=== PATIENT | male | born 1955 | race Caucasian/White ===

== ENCOUNTER 2017-11-15 13:28 | Emergency (ER) | payer SELFPAY ==
[2017-11-15] MEDS ORDERED: FENTANYL CITRATE INJ/PF 100 MCG/2 ML AMPUL ONE (13:39)
--- NOTE | 2017-11-15 13:39 | ER Document Report ---
ED Hand/Wrist Injury - General Chief Complaint: Finger Injury Stated Complaint: FINGER INJURY Time Seen by Provider: 11/15/17 13:39 Notes: 61-year-old male was working on a table saw. Lost control of the board. Pulled his left hand into the sole. Amputation and lacerations of the third digit on the left hand with fracture, dislocation and lacerations of the second digit. There is a fillet injury to the left thumb. Cannot feel his left thumb or the second digit on the left hand. No other injuries. Did not pass out. Denies any other symptoms. TRAVEL OUTSIDE OF THE [place] IN LAST 30 DAYS: No - HPI Injury to: Hand, Thumb, Index finger, Middle finger Onset: Just prior to arrival Past Medical History - General Information source: Patient - Social History Smoking Status: Current Every Day Smoker Cigarette use (# per day): Yes Frequency of alcohol use: Occasional Drug Abuse: None Lives with: Alone Family History: Reviewed & Not Pertinent - Past Medical History Cardiac Medical History: Reports: None Pulmonary Medical History: Reports: None EENT Medical History: Reports: None Neurological Medical History: Reports: None Endocrine Medical History: Reports: None Renal/ Medical History: Reports: None Malignancy Medical History: Reports None GI Medical History: Reports: None Review of Systems - Review of Systems Constitutional: No symptoms reported EENT: No symptoms reported Cardiovascular: No symptoms reported Respiratory: No symptoms reported Gastrointestinal: No symptoms reported Genitourinary: No symptoms reported Male Genitourinary: No symptoms reported Musculoskeletal: See HPI, Other - lacerations and fractures to the left hand Skin: No symptoms reported, See HPI, Other - lacerations 1-3 digits on left hand Hematologic/Lymphatic: No symptoms reported Neurological/Psychological: No symptoms reported Physical Exam - Vital signs Vitals: Resp Pulse Ox 23 H 94 11/15/17 14:09 11/15/17 14:09 Interpretation: Normal - General General appearance: Appears well, Anxious In distress: Moderate Notes: Uncomfortable due to pain. - HEENT Head: Normocephalic, Atraumatic Eyes: Normal Pupils: PERRL - Respiratory Respiratory status: No respiratory distress Chest status: Nontender Breath sounds: Normal Chest palpation: Normal - Cardiovascular Rhythm: Regular Heart sounds: Normal auscultation Murmur: No - Abdominal Inspection: Normal Distension: No distension Bowel sounds: Normal Tenderness: Nontender Organomegaly: No organomegaly - Back Back: Normal, Nontender - Extremities General upper extremity: Other - The left hand demonstrates open lacerations from the distal tip of the first digit to the thenar eminence. There is bone fragments present. There is loss of sensation and capillary refill to the distal thumb. There is a open laceration with deformity to the second digit. There is decreased sensation and decreased capillary refill to the second digit. There is open laceration to the third digit of the left hand. General lower extremity: Normal inspection, Nontender, Normal color, Normal ROM , Normal temperature, Normal weight bearing. No: Ricarda's sign - Neurological Neuro grossly intact: Yes Cognition: Normal Orientation: AAOx4 Reuben Coma Scale Eye Opening: Spontaneous Madison Coma Scale Verbal: Oriented Madison Coma Scale Motor: Obeys Commands Reuben Coma Scale Total: 15 Speech: Normal Motor strength normal: LUE, RUE, LLE, RLE Sensory: Normal - Psychological Associated symptoms: Normal affect, Normal mood - Skin Skin Temperature: Warm Skin Moisture: Dry Skin Color: Normal, Other - There is large lacerations present to the left thumb , index, middle finger on the left hand on the volar surface. Course - Re-evaluation Re-evalutation: 11/15/17 14:41 Patient has open fracture with partial amputation of the left thumb and second digit distally. Not too concerned about the second or third digit however due to the fact the patient has severe injury with decreased pulses in sensation to the thumb patient needs to be seen by hand specialist. Consulted with Dr. Briseno at [facility] who has accepted patient has a trauma transfer. IV antibiotics, tetanus, pain medication given. Zofran given. Anticipate transfer shortly. She has been managed for expectations as this is unlikely to have a good result. Patient is understandable. 11/15/17 15:05 Patient reevaluated at 1505. Remained stable for transport. Laceration sites were covered with sterile dressings. Pain medication given. 11/15/17 15:49 Patient reevaluated at 1550. Remained stable. Another dose of pain medication ordered prior to transfer. - Vital Signs Vital signs: Temp Pulse Resp BP Pulse Ox 20 134/77 H 94 11/15/17 14:31 11/15/17 14:31 11/15/17 14:31 - Laboratory Result Diagrams: 11/15/17 13:38 11/15/17 13:38 Laboratory results interpreted by me: 11/15/17 13:38 Chloride 108 H - EKG Interpretation by Me EKG shows normal: Sinus rhythm, Cadwell, Intervals, QRS Complexes, ST-T Waves Critical Care Note - Critical Care Note Total time excluding time spent on procedures (mins): 45 Comments: Amputation with vascular compromise, consultation with specialists Discharge - Discharge Clinical Impression: Open fracture Partial traumatic metacarpophalangeal amputation of left thumb Qualifiers: Encounter type: initial encounter Qualified Code(s): S68.022A - Partial traumatic metacarpophalangeal amputation of left thumb, initial encounter Finger fracture, left Qualifiers: Encounter type: initial encounter Finger: middle finger Fracture type: open Phalanx: distal Fracture alignment: displaced Qualified Code(s): S62.633B - Displaced fracture of distal phalanx of left middle finger, initial encounter for open fracture Disposition: Joiner
[2017-11-15] MEDS ORDERED: ONDANSETRON HCL INJ/PF 4 MG/2 ML SDV IV ONE (13:40)
[2017-11-15] MEDS ORDERED: NORMAL SALINE 1000 ML 1,000 ML IV ONE (13:40)
[2017-11-15] MEDS ORDERED: FENTANYL CITRATE INJ/PF 100 MCG/2 ML AMPUL IV ONE ×2 (13:40→15:48)
[2017-11-15] MEDS ORDERED: AMPICILLIN SOD/SULBACTAM 3 GM VIAL IV ONE (13:40)
[2017-11-15] MEDS ORDERED: DIPH/PERTUSS(ACELL)/TETANUS VAC/PF 0.5 ML SYR (>=10YO) IM ONE (13:40)
[2017-11-15] MEDS ORDERED: ONDANSETRON HCL INJ/PF 4 MG/2 ML SDV ONE (13:41)
[2017-11-15 13:57] LABS: ABSOLUTE BASOPHILS # (AUTO) 0.1 10^3/uL (0.0-0.2); ABSOLUTE EOSINOPHILS # (AUTO) 0.4 10^3/uL (0.0-0.6); ABSOLUTE MONOCYTES (AUTO) 0.6 10^3/uL (0.1-1.4); ABSOLUTE NEUT (AUTO) 4.3 10^3/uL (1.7-8.2); BASOPHILS % (AUTO) 0.8 % (0-2); HEMATOCRIT 46.1 % (37.9-51.0); HEMOGLOBIN 16.3 g/dL (13.5-17.0); LYMPHOCYTES % (AUTO) 35.6 % (13-45); MEAN CORPUSCULAR HEMOGLOBIN 30.6 pg (27.0-33.4); MEAN CORPUSCULAR HGB CONC 35.3 g/dL (32.0-36.0); MEAN CORPUSCULAR VOLUME 86 fl (80-97); MONOCYTES % (AUTO) 6.9 % (3-13); PLATELET COUNT 226 10^3/uL (150-450); RED BLOOD COUNT 5.33 10^6/uL (4.35-5.55); RED CELL DISTRIBUTION WIDTH 13.2 % (11.5-14.0); SEGMENTED NEUTROPHILS % (AUTO) 51.7 % (42-78); TOTAL CELLS COUNTED % (AUTO) 100 %; WHITE BLOOD COUNT 8.4 10^3/uL (4.0-10.5)
--- NOTE | 2017-11-15 14:08 | RADIOLOGY REPORT (SQ) ---
EXAM DESCRIPTION: HAND LEFT 2 VIEWS COMPLETED DATE/TIME: 11/15/2017 1:56 pm REASON FOR STUDY: amputation COMPARISON: None. EXAM PARAMETERS: NUMBER OF VIEWS: Two views TECHNIQUE: AP and lateral radiographic images acquired of the left hand. LIMITATIONS: None. FINDINGS: MINERALIZATION: Normal. BONES: There are comminuted fractures of the 2nd and 3rd digits. There appears to been prior amputat ion of the distal phalanx of the 3rd digit. In the 2nd digit there are fractures involving the proxi mal and middle phalanges and likely the distal phalanx. What appear to be osteotomy changes are pres ent in the thumb in the proximal phalanx although this could represent acute injury. JOINTS: No effusions. SOFT TISSUES: No soft tissue swelling. No foreign body. OTHER: No other significant finding. IMPRESSION: Fractures as described. TECHNICAL DOCUMENTATION: JOB ID: [id number] [employer]- All Rights Reserved Reading location - IP/workstation name: [email or web address]
[2017-11-15 14:15] LABS: ALANINE AMINOTRANSFERASE 36 U/L (21-72); ALBUMIN 4.6 g/dL (3.5-5.0); ALKALINE PHOSPHATASE 64 U/L (38-126); ANION GAP 11 (5-19); ASPARTATE AMINO TRANSFERASE 27 U/L (17-59); BILIRUBIN,DIRECT 0.4 mg/dL (0.0-0.4); BILIRUBIN,TOTAL 0.5 mg/dL (0.2-1.3); BLOOD UREA NITROGEN 16 mg/dL (7-20); CALCIUM 9.8 mg/dL (8.4-10.2); CARBON DIOXIDE 25 mmol/L (22-30); CHLORIDE 108 mmol/L (98-107); GLUCOSE 101 mg/dL (75-110); POTASSIUM 4.2 mmol/L (3.6-5.0); SODIUM 143.6 mmol/L (137-145); TOTAL PROTEIN 7.5 g/dL (6.3-8.2)
[2017-11-15 14:19] LABS: INTERNATIONAL RATION (INR) 0.92; PROTHROMBIN TIME 13.1 SEC (11.4-15.4)
[2017-11-15 14:20] LABS: PARTIAL THROMBOPLASTIN TIME 26.1 SEC (23.5-35.8)
[2017-11-15 16:09] VITALS: BP 143/83
--- NOTE | 2017-11-15 21:53 | EKG REPORT ---
SEVERITY:- ABNORMAL ECG - SINUS RHYTHM NONSPECIFIC INTRAVENTRICULAR CONDUCTION DELAY : Confirmed by: Otf Plascencia 15-Nov-2017 21:52:55
== END 2017-11-15 16:15 | disposition short-term general hospital (02) ==
LOC: ER 13:28
DX: S68.022A Partial traumatic metacarpophalangeal amputation of left thumb, initial encounter (principal); S61.012A Laceration without foreign body of left thumb without damage to nail, initial encounter; S61.211A Laceration without foreign body of left index finger without damage to nail, initial encounter; S61.213A Laceration without foreign body of left middle finger without damage to nail, initial encounter; F17.210 Nicotine dependence, cigarettes, uncomplicated; W31.2XXA Contact with powered woodworking and forming machines, initial encounter; Z23 Encounter for immunization
CPT/HCPCS: 93005; 96376; 99291; 90471; 96375; 96365; 36415; 85025; 85610; 85730; 80053; 84484; 73120; 90715; 93010; J3010; J0295; J2405; J7030